=== PATIENT | male | born 1975 | race Caucasian/White ===

== ENCOUNTER 2020-03-20 18:26 | Inpatient (IN) | payer BC ==
[~2020-03-20] VITALS: Ht 175.3 cm; Wt 98.3 kg
[2020-03-20 00:45] VITALS: BP 143/90
--- NOTE | 2020-03-20 00:50 | NUR ---
MS admit from [facility],YAYA admitted to MS, no SBAR received. Patient oriented by BRII OTT, primary RN, unit, room, bed, and unit policies regarding patient care and visiting hours. Patient weighed by bedscale and encouraged to call if he needs anything. All questions and concerns addressed, patient verbalized understanding. Bed in low position; nurse call light within pt reach.
[~2020-03-20 18:26] MED LIST: NORPTMEDS CO
[2020-03-20 19:29] LABS: Basophils # (auto) 0.1 10 ^3/uL (0-0.2); Basophils % (auto) 0.6 % (0.0-2.0); Eosinophils # (auto) 0.1 10 ^3/uL (0-0.8); Eosinophils % (auto) 0.9 % (0.0-7.0); Hematocrit 51.7 % (41.0-53.0); Hemoglobin 17.4 g/dL (13.5-17.5); Lymphocytes # (auto) 2.3 10 ^3/uL (0.4-5.4); Mean Corpuscular Hemoglobin 30.4 pg (28.0-32.0); Mean Corpuscular Hgb Conc. 33.6 g/dL (32.0-36.0); Mean Corpuscular Volume 90.3 fL (80.0-100.0); Monocytes # (auto) 1.3 10 ^3/uL (0-1.3); Monocytes % (auto) 13.4 % (0.0-12.0); Neutrophils # (auto) 6.2 10 ^3/uL (1.6-8.6); Neutrophils % (auto) 62.1 % (37.0-80.0); Nucleated Red Blood Cells % 0.1 %; Platelet Count (auto) 230 10^3/uL (140-450); Red Blood Cells 5.73 10^6/uL (4.5-5.90); Red Cell Distribution Width 14.7 % (11.8-14.3); White Blood Cell 9.9 10^3/uL (4.4-10.8)
[2020-03-20 19:30] LABS: Urine Bacteria NONE SEEN /hpf (None Seen); Urine Blood 3+ /uL (Negative); Urine Mucus FEW (None Seen); Urine Specific Gravity 1.023 (1.001-1.035); Urine WBC 10 /hpf (0 - 3)
[2020-03-20 20:00] LABS: Albumin 3.9 g/dL (3.4-5.0); Calcium 8.5 mg/dL (8.5-10.1)
[2020-03-20 20:03] LABS: BUN/Creatinine Ratio 14.1; Bilirubin, Total 0.5 mg/dL (0.2-1.0); Total Protein 7.5 g/dL (6.4-8.2)
[2020-03-20] MEDS ORDERED: SODIUM CHLORIDE 0.9% 1,000 ML IVB ONE (21:04)
[2020-03-20] MEDS ORDERED: KETOROLAC TROMETH 30 MG/ML 1ML VIAL IV ONE (21:15)
[2020-03-20] MEDS ORDERED: ONDANSETRON HCL 4 MG/2 ML VIAL IV ONE (21:15)
[2020-03-20] MEDS ORDERED: TAMSULOSIN HYDROCHLORIDE 0.4 MG CAP PO ONE (21:30)
[2020-03-20] MEDS ORDERED: SODIUM CHLORIDE 0.9% 1,000 ML IV SCH (22:11)
[2020-03-20] MEDS ORDERED: ONDANSETRON HCL 4 MG/2 ML VIAL IV PRN (22:15)
[2020-03-20] MEDS ORDERED: MORPHINE SULF INJ 2 MG/ML SYRINGE 1ML IV PRN (22:15)
[2020-03-20] MEDS ORDERED: DOCUSATE SOD 100 MG CAP PO PRN (22:15)
[2020-03-20] MEDS ORDERED: ACETAMINOPHEN 325 MG TAB PO PRN (22:15)
[2020-03-20] MEDS: FINASTERIDE 5 MG TAB PO SCH (23:35)
[2020-03-21] VITALS (7 sets, daily range): BP systolic 124–144; BP diastolic 70–90
[2020-03-21] MEDS ORDERED: FLUO40CA75 PO (02:13)
--- NOTE | 2020-03-21 02:55 | NUR ---
Patient's admission completed. Time entered incorrectly. Patient's admitted on 03/21/20 0045.
--- NOTE | 2020-03-21 07:15 | NUR ---
OPENING SHIFT NOTE ASSUMED CARE OF PATIENT FROM PIT OPERATOR RN JUSTO. PATIENT IS AWAKE ALERT, AND ORIENTED X4. PATIENT HAS NO S/S OF DISTRESS/SOB OR PAIN AT THIS TIME. INSTRUCTED PATIENT ON POC, PATIENT VERBALIZED UNDERSTANDING. BED IS IN LOWEST POSITION WITH SIDE RAILS RAISED X2, BED WHEELS LOCKED, AND CALL LIGHT IS WITHIN REACH. WILL CONTINUE TO MONITOR.
[2020-03-21 08:03] LABS: Basophils # (auto) 0.1 10 ^3/uL (0-0.2); Basophils % (auto) 0.8 % (0.0-2.0); Eosinophils # (auto) 0 10 ^3/uL (0-0.8); Eosinophils % (auto) 0.7 % (0.0-7.0); Hematocrit 52.7 % (41.0-53.0); Hemoglobin 17.3 g/dL (13.5-17.5); Lymphocytes # (auto) 1.8 10 ^3/uL (0.4-5.4); Lymphocytes % (auto) 26.2 % (10.0-50.0); Mean Corpuscular Hemoglobin 29.8 pg (28.0-32.0); Mean Corpuscular Hgb Conc. 32.9 g/dL (32.0-36.0); Mean Corpuscular Volume 90.7 fL (80.0-100.0); Monocytes # (auto) 1.1 10 ^3/uL (0-1.3); Neutrophils # (auto) 3.8 10 ^3/uL (1.6-8.6); Neutrophils % (auto) 56.3 % (37.0-80.0); Nucleated Red Blood Cells % 0.1 %; Platelet Count (auto) 204 10^3/uL (140-450); Red Blood Cells 5.81 10^6/uL (4.5-5.90); Red Cell Distribution Width 14.9 % (11.8-14.3); White Blood Cell 6.7 10^3/uL (4.4-10.8)
[2020-03-21 08:22] LABS: Calcium 8.1 mg/dL (8.5-10.1); Potassium 4.3 mmol/L (3.5-5.1)
[2020-03-21 08:25] LABS: BUN/Creatinine Ratio 18.1
[2020-03-21] MEDS: cefTRIAXone 1GM/50ML D5W 50 ML IV SCH (09:29)
[2020-03-21] MEDS: FINASTERIDE 5 MG TAB PO SCH (09:30)
[2020-03-21] MEDS: HYDROcodone-ACET 5/325MG TAB PO PRN ×2 (09:30→18:28)
[2020-03-21] MEDS: FUROSEMIDE 40 MG/4 ML VIAL IV SCH (09:30)
[2020-03-21] MEDS: TAMSULOSIN HYDROCHLORIDE 0.4 MG CAP PO SCH (09:30)
[2020-03-21] MEDS ORDERED: MANNITOL 20% SOLN 100 gm/500ml 100 ML IV ONE (11:30)
--- NOTE | 2020-03-21 11:30 | NUR ---
MD SALGUERO AT BEDSIDE INFORMED MD PATIENT PASSED BLACK STONE, MD IS AWARE AND ORDERED STONE TO BE SENT FOR STONE ANALYSIS AND FLUIDS TO BE INCREASED TO 150 ML. WILL FOLLOW THROUGH WITH ORDERS.
[2020-03-21] MEDS: SODIUM CHLORIDE 0.9% 1,000 ML IV SCH (18:27)
--- NOTE | 2020-03-21 19:05 | NUR ---
Assumed care at this time. Pt is alert and riented x4, no s/s of distress, no c/o pain or discomfort.
--- NOTE | 2020-03-21 19:09 | NUR ---
CLOSING SHIFT NOTE ENDORSED CARE TO PRIMARY SUBSTANCE ABUSE COUNSELOR RN CHIKIS. PATIENT HAS NO S/S OF DISTRESS/SOB OR PAIN AT THIS TIME.
[2020-03-22 05:00] VITALS: BP 143/80
[2020-03-22] MEDS: SODIUM CHLORIDE 0.9% 1,000 ML IV SCH ×2 (06:00→10:30)
--- NOTE | 2020-03-22 07:16 | NUR ---
OPENING SHIFT NOTE ASSUMED CARE OF PATIENT FROM CUSTODIAL SERVICES MANAGER RN CHIKIS. PATIENT IS AWAKE ALERT, AND ORIENTED X4. PATIENT HAS NO S/S OF DISTRESS/SOB OR PAIN AT THIS TIME. INSTRUCTED PATIENT ON POC, PATIENT VERBALIZED UNDERSTANDING. BED IS IN LOWEST POSITION WITH SIDE RAILS RAISED X2, BED WHEELS LOCKED, AND CALL LIGHT IS WITHIN REACH. WILL CONTINUE TO MONITOR.
[2020-03-22 07:56] VITALS: BP 146/90
[2020-03-22] MEDS ORDERED: MANNITOL FTV 25% 12.5 GM/50 ML 50 ML IV ONE (08:45)
--- NOTE | 2020-03-22 09:00 | NUR ---
PAGED DR. MULLER REGARDING MANNITOL. AWAITING CALL BACK.
--- NOTE | 2020-03-22 09:10 | NUR ---
MD MULLER CALLED BACK INFORMED DR. MULLER PATIENT HAS ALREADY PASSED KIDNEY STONE AND IT HAS BEEN SENT FOR STONE ANALYSIS, IS AWARE AND CANCELLED MANNITOL ORDER AND CLEARED PATIENT FOR DISCHARGE.
[2020-03-22 09:20] VITALS: BP 146/90
[2020-03-22] MEDS: cefTRIAXone 1GM/50ML D5W 50 ML IV SCH (10:00)
[2020-03-22 10:25] VITALS: BP 146/90
[2020-03-22] MEDS: FINASTERIDE 5 MG TAB PO SCH (10:46)
[2020-03-22] MEDS: TAMSULOSIN HYDROCHLORIDE 0.4 MG CAP PO SCH (10:46)
[2020-03-22] MEDS: FUROSEMIDE 40 MG/4 ML VIAL IV SCH (10:51)
--- NOTE | 2020-03-22 11:34 | NUR ---
Discharge instructions given as ordered. Encourage to follow up with PMD as instructed. All questions and concerns addressed. Patient verbalized understanding. Medication reconciliation form completed and copy given to patient. IV removed with catheter intact, pressure dressing applied. Patient ambulated to vehicle with all personal belongings, accompanied by staff. No distress noted at time of departure.
== END 2020-03-22 11:34 | disposition home or self-care (01) | DRG 690 ==
LOC: ER 18:26 → OVERFLOW 18:27 → CENTRAL 03-21 00:48
PROVIDERS: ADMIT Hospitalist; ATTEND Family Medicine
DX: N13.6 Pyonephrosis (principal); Z82.49 Family history of ischemic heart disease and other diseases of the circulatory system; Z83.3 Family history of diabetes mellitus; Z87.442 Personal history of urinary calculi
CPT/HCPCS: 36415; 74176; 80048; 80053; 80061; 81001; 82360; 85025; G0378; J0696; J1885; J2405